=== PATIENT | male | born 1985 | race Caucasian/White ===

== ENCOUNTER 2018-12-06 16:17 | Emergency (ER) | payer MEDICAID ==
[~2018-12-06] VITALS: Ht 157.5 cm; Wt 57.0 kg
[~2018-12-06 16:17] MED LIST: BACTDS PO; CEPH-443 PO
[2018-12-06 16:21] VITALS: BP 130/69; PULSE 86; RESP 20; Ht 157.5 cm; Wt 57.0 kg
--- NOTE | 2018-12-06 16:48 | ERD ---
ER Documentation Chief Complaint Chief Complaint CRUSHED HIS RIGHT FINGER HPI 33-year-old male, right-handed, presents to the emergency department, complaining of crush injury of his right hand that occurred while the patient was working on his car and a heavy object fell onto his hand approximately 45 minutes prior to arrival. ROS All systems reviewed and are negative except as per history of present illness. Medications Home Meds Active Scripts Hydrocodone/Acetaminophen ([place] 5-325 Tablet) 1 Each Tablet, 1 TAB PO QHS PRN for PAIN, #7 TAB Prov:RALPH COATES MD 12/06/18 Ibuprofen* (Motrin*) 600 Mg Tab, 600 MG PO Q8, #30 TAB Prov:RALPH COATES MD 12/06/18 Sulfamethoxazole/Trimethoprim* (Bactrim Ds* Tablet) 1 Each Tablet, 1 TAB PO BID, #14 TAB Prov:RALPH COATES MD 12/06/18 Cephalexin* (Keflex*) 500 Mg Capsule, 500 MG PO BID for 7 Days, CAP Prov:RALPH COATES MD 12/06/18 Cephalexin* (Keflex*) 500 Mg Capsule, 500 MG PO QID for 7 Days, CAP Prov:LYNDA BANEGAS PA-C 09/27/15 Sulfamethoxazole-Trimethoprim* (Bactrim* DS) 800-160 Mg Tab, 1 TAB PO BID for 7 Days, TAB Prov:LYNDA BANEGAS PA-C 09/27/15 Allergies Allergies: Coded Allergies: No Known Allergy (Unverified , 12/06/18) PMhx/Soc Medical and Surgical Hx: pt denies Medical Hx Hx Alcohol Use: No Hx Substance Use: No Hx Tobacco Use: No FmHx Family History: No diabetes, No coronary disease Physical Exam Vitals Vital Signs Date Temp Pulse Resp B/P (MAP) Pulse Ox O2 O2 Flow FiO2 Time Delivery Rate 12/06/18 98.0 86 20 130/69 100 16:21 (89) Physical Exam Const: No acute distress Head: Atraumatic Eyes: Normal Conjunctiva ENT: Normal External Ears, Nose and Mouth. Neck: Full range of motion. No meningismus. Resp: Clear to auscultation bilaterally Cardio: Regular rate and rhythm, no murmurs Abd: Soft, non tender, non distended. Normal bowel sounds Skin: No petechiae or rashes Back: No midline or flank tenderness Ext: Right hand with crushing injuries with subcutaneous fat exposure of the distal phalanx of the second, third, fourth and fifth digit. Extensive edema, delayed perfusion, numbness and tingling to palpation but full range of motion of the distal phalanx. Neur: Awake and alert Psych: Normal Mood and Affect Results 24 hrs Current Medications Medications Dose Sig/Jessica Start Time Status Last (Trade) Ordered Route PRN Stop Time Admin Dose Reason Admin Bupivacaine 30 ml ONCE ONCE 12/06/18 DC HCl INJ 17:00 (Marcaine 12/06/18 17:01 0.25% (Mpf) 30 ml) Lidocaine 20 ml ONCE ONCE 12/06/18 DC (Xylocaine SC 17:00 1% (Mdv) 20 12/06/18 17:01 ml) Diphtheria/ 0.5 ml ONCE ONCE 12/06/18 DC 12/06/18 Tetanus/Acell IM* 17:00 17:07 Pertussis 12/06/18 17:01 (Adacel) Cefazolin 1 gm ONCE ONCE 12/06/18 DC 12/06/18 Sodium IM 19:00 18:51 (Ancef) 12/06/18 19:01 Lidocaine 5 ml ONCE ONCE 12/06/18 DC (Xylocaine INFIL 19:00 1% (Mpf)) 12/06/18 19:01 DIAGNOSTIC IMAGING REPORT Patient: INÉS FLORENTINO : 1985 Age: 33 Sex: M [id number] DOS: 12/06/18 1646 Ordering MD: RALPH COATES MD Location: E Room/Bed: PROCEDURE: XR Hand. CLINICAL INDICATION: finger crush injury TECHNIQUE: AP, oblique, and lateral views of the right hand were obtained. COMPARISON: No prior studies are available for comparison. FINDINGS: There are comminuted fractures of the third, fourth, and fifth digit dusty. There is a small bony fragment arising from the second digit tuft as well. There is second the fifth digit distal soft tissue swelling. The joint spaces are preserved. Bone mineralization is normal. IMPRESSION: 1. Comminuted fractures of the third , fourth, and fifth digit dusty. Small fracture fragment arising from the second digit tuft as well. RPTAT: DD .Blair Carrasco MD, Date Time Electronically viewed and signed by .Blair Carrasco MD, MD on 12/06/2018 17:13 Procedures/MDM Vital signs stable, the patient was evaluated for foreign body, open fracture, nerve/vascular/tendon injury. Pertinent data: Comminuted fractures of the third , fourth, and fifth digit dusty. Small fracture fragment arising from the second digit tuft as well. Procedure: Laceration repair The procedure was explained and consent obtained. Anesthesia: Digital block of 2nd, 3rd, 4thand 5th 1% lidocaine with bupivacaine. Tendon/Joint/Nerves: crushed fractures without bone exposure Foreign body: None detected after copious irrigation and exploration Technique: Simple Interrupted Sutures Complexity: No subcutaneous sutures/mucosal repair/edge excision Post Closure Length: 5 cm Splint evaluation: Type: Short arm posterior Location: Right forearm Position: good alignment in anatomical position Neurovascular intact The patient was told that elevating the injured part will help reduce pain and swelling. Ice packs can decrease pain and promote healing when applied in the first two days after an injury. The pack should be dry on the outside. Apply it for half an hour three to four times a day. The patient tolerated the procedure well without complications. clinical impression and possible complications like infection and a scar where discussed with the patient who agreed with management. The patient is stable to be treated outpatient and will be discharged home with a Rx for Bactrim, Keflex and pain medications, some side effects of prescribed medications (headache, rash, nausea, vomiting, diarrhea, interactions with other medications) were reviewed. The patient was instructed to follow up here in 48h for wound check. If symptoms persist, worsen or new symptoms develop, then patient should return to the ED immediately. Instructions explained and given directly by me to the patient with acknowledgment and demonstrated understanding. Disclaimer: Inadvertent spelling and grammatical errors are likely due to EHR/dictation software use and do not reflect on the overall quality of patient care. Also, please note that the electronic time recorded on this note does not necessarily reflect the actual time of the patient encounter. Departure Diagnosis: Primary Impression: Fracture of distal phalanx of finger of right hand Additional Impression: Crushing injury of finger, right Condition: Stable Additional Instructions: Muchas giancarlo por [facility] para perdomo servicio. Esperamos que en perdomo visita a la kwabena de emergencia perdomo problema medico haya sido solucionado y que se sienta mucho mejor. Para estar seguros que perdomo mejoria sigue en proceso, le pedimos el favor de hacer melissa chirag de seguimiento medico con perdomo doctor primario en los proximos 2-4 han. Lleve con usted estos documentos y las medicinas recetadas. Si shamika sintomas empeoran, NO SE ESPERE, por favor regrese a kwabena de emergencia INMEDIATAMENTE. En jovanni que usted no tenga un mdico de atencin primaria: Llame al mdico o clnica comunitaria de referencia que aparece abajo nickolas las horas de consultorio para hacer melissa chirag para que le vean. CLINICAS: [facility] [phone] [facility] [phone] [address] [facility] [phone] [facility] [phone] [facility] [phone] [address] [facility]. [phone] RALPH BORGES MD Dec 06, 2018 16:48
[2018-12-06] MEDS ORDERED: DIPHTH/TET/ACEL PERTUSS (ADULT) 0.5 ML VIAL IM* ONE (17:00)
[2018-12-06] MEDS ORDERED: BUPIVACAINE 0.25% (MPF) 30 ML INJ INJ ONE (17:00)
[2018-12-06] MEDS ORDERED: LIDOCAINE 1% (MDV) 20 ML INJ SC ONE (17:00)
[2018-12-06] MEDS ORDERED: SULF1TAB31 PO (18:39)
[2018-12-06] MEDS ORDERED: HYDR-4011 PO (18:39)
[2018-12-06] MEDS ORDERED: CEPH-443 PO (18:39)
[2018-12-06] MEDS ORDERED: IBUP-1542 PO (18:39)
[2018-12-06] MEDS ORDERED: LIDOCAINE 1% (MPF) 5 ML VIAL INFIL ONE (19:00)
[2018-12-06] MEDS ORDERED: CEFAZOLIN 1 GM INJ IM ONE (19:00)
== END 2018-12-06 19:20 | disposition home or self-care (01) ==
LOC: FTE 16:17
DX: S62.632A Displaced fracture of distal phalanx of right middle finger, initial encounter for closed fracture (principal); S62.634A Displaced fracture of distal phalanx of right ring finger, initial encounter for closed fracture; S62.636A Displaced fracture of distal phalanx of right little finger, initial encounter for closed fracture; W20.8XXA Other cause of strike by thrown, projected or falling object, initial encounter; Y92.89 Other specified places as the place of occurrence of the external cause; Z23 Encounter for immunization
CPT/HCPCS: 12002; 73130; 90471; 90715; 96372; J0690; Z7502; Z7610

== ENCOUNTER 2018-12-08 10:09 | Emergency (ER) | payer MEDICAID ==
[~2018-12-08] VITALS: Ht 162.6 cm; Wt 57.2 kg
[~2018-12-08 10:09] MED LIST changes: +HYDR-4011 PO; +IBUP-1542 PO; +SULF1TAB31 PO
[2018-12-08 10:14] VITALS: BP 113/65; PULSE 75; RESP 18; Ht 162.6 cm; Wt 57.2 kg
--- NOTE | 2018-12-08 12:03 | ERD ---
ER Documentation Chief Complaint Chief Complaint for recheck on rt hand injury HPI 33-year-old male, returns to the emergency department for 48 hours wound check. The patient sustained multiple right finger injuries with distal phalangeal fractures 2 days ago. The patient refers feeling better. Good compliance with antibiotics, no side effects. The patient denies fevers, no chills, he reports decreased sensation on the tip of the fingers but able to move it. ROS All systems reviewed and are negative except as per history of present illness. Medications Home Meds Active Scripts Hydrocodone/Acetaminophen ([place] 5-325 Tablet) 1 Each Tablet, 1 TAB PO QHS PRN for PAIN, #7 TAB Prov:RALPH COATES MD 12/06/18 Ibuprofen* (Motrin*) 600 Mg Tab, 600 MG PO Q8, #30 TAB Prov:RALPH COATES MD 12/06/18 Sulfamethoxazole/Trimethoprim* (Bactrim Ds* Tablet) 1 Each Tablet, 1 TAB PO BID, #14 TAB Prov:RALPH COATES MD 12/06/18 Cephalexin* (Keflex*) 500 Mg Capsule, 500 MG PO BID for 7 Days, CAP Prov:RALPH COATES MD 12/06/18 Cephalexin* (Keflex*) 500 Mg Capsule, 500 MG PO QID for 7 Days, CAP Prov:LYNDA BANEGAS PA-C 09/27/15 Sulfamethoxazole-Trimethoprim* (Bactrim* DS) 800-160 Mg Tab, 1 TAB PO BID for 7 Days, TAB Prov:LYNDA BANEGAS PA-C 09/27/15 Allergies Allergies: Coded Allergies: No Known Allergy (Unverified , 12/06/18) PMhx/Soc Medical and Surgical Hx: pt denies Medical Hx, pt denies Surgical Hx Hx Alcohol Use: No Hx Substance Use: No Hx Tobacco Use: No Smoking Status: Never smoker FmHx Family History: No diabetes, No coronary disease Physical Exam Vitals Vital Signs Date Temp Pulse Resp B/P (MAP) Pulse Ox O2 O2 Flow FiO2 Time Delivery Rate 12/08/18 98.9 75 18 113/65 98 10:14 (81) Physical Exam Const: No acute distress Head: Atraumatic Eyes: Normal Conjunctiva ENT: Normal External Ears, Nose and Mouth. Neck: Full range of motion. No meningismus. Resp: Clear to auscultation bilaterally Cardio: Regular rate and rhythm, no murmurs Abd: Soft, non tender, non distended. Normal bowel sounds Skin: No petechiae or rashes Back: No midline or flank tenderness Ext: Right hand with multiple crush injuries of the distal phalanx of the right fingers, adequate healing process, wounds clean, dry and intact. Distal neurovascular exam unremarkable. Neur: Awake and alert Psych: Normal Mood and Affect Procedures/MDM Status post laceration repair 2 days ago. Adequate pain control, no fever, no chills, good compliance with medications no side effects. The patient was evaluated for infection and neurovascular compromise. The wound was clean and irrigated with normal saline and dressing applied. Patient is stable, with adequate healing process, okay to discharge home, medication adherence reinforced. some side effects of prescribed medications (headache, rash, nausea, vomiting, diarrhea, drowsiness, habituation, bleeding, hypertension, interactions with other medications) were reviewed. The patient was instructed to return in 48h. If symptoms persist, worsen or new symptoms develop, then patient should return to the ED immediately. Instructions explained and given directly by me to the patient with acknowledgment and demonstrated understanding. Disclaimer: Inadvertent spelling and grammatical errors are likely due to EHR /dictation software use and do not reflect on the overall quality of patient care. Also, please note that the electronic time recorded on this note does not necessarily reflect the actual time of the patient encounter. Departure Diagnosis: Primary Impression: Encounter for wound re-check Condition: Stable Patient Instructions: Wound Check, Lac F/U (No Infection) Additional Instructions: Muchas giancarlo por [facility] para perdomo servicio. Esperamos que en perdomo visita a la kwabena de emergencia perdomo problema medico haya sido solucionado y que se sienta mucho mejor. Para estar seguros que perdomo mejoria sigue en proceso, le pedimos el favor de hacer melissa chirag de seguimiento medico con perdomo doctor primario en los proximos 2-4 han. Lleve con usted estos documentos y las medicinas recetadas. Si shamika sintomas empeoran, NO SE ESPERE, por favor regrese a kwabena de emergencia INMEDIATAMENTE. En jovanni que usted no tenga un mdico de atencin primaria: Llame al mdico o clnica comunitaria de referencia que aparece abajo nickolas las horas de consultorio para hacer melissa chirag para que le vean. CLINICAS: [facility] [phone] [facility] [phone] [address] [facility] [phone] [address] [place] [phone] [place] [phone] [address] [facility]. [phone] RALPH BORGES MD Dec 08, 2018 12:03
== END 2018-12-08 12:10 | disposition home or self-care (01) ==
LOC: FTE 10:09
DX: Z48.01 Encounter for change or removal of surgical wound dressing (principal)
CPT/HCPCS: 99281

== ENCOUNTER 2018-12-10 10:16 | Emergency (ER) | payer MEDICAID ==
[~2018-12-10] VITALS: Ht 157.5 cm; Wt 57.3 kg
[2018-12-10 10:25] VITALS: BP 122/59; PULSE 75; RESP 20; Ht 157.5 cm; Wt 57.3 kg
--- NOTE | 2018-12-10 12:48 | ERD ---
ER Documentation Chief Complaint Chief Complaint Patient here for a wound check HPI 33-year-old male with a history of fractures of fingertips on the right hand associated with laceration to the crush injury with a car selene 4 days ago. Here for a wound check. His pain is controlled he has no fevers, new symptoms. ROS All systems reviewed and are negative except as per history of present illness. Medications Home Meds Active Scripts Hydrocodone/Acetaminophen ([place] 5-325 Tablet) 1 Each Tablet, 1 TAB PO QHS PRN f or PAIN, #7 TAB Prov:RALPH COATES MD 12/06/18 Ibuprofen* (Motrin*) 600 Mg Tab, 600 MG PO Q8, #30 TAB Prov:RALPH COATES MD 12/06/18 Sulfamethoxazole/Trimethoprim* (Bactrim Ds* Tablet) 1 Each Tablet, 1 TAB PO BID, #14 TAB Prov:RALPH COATES MD 12/06/18 Cephalexin* (Keflex*) 500 Mg Capsule, 500 MG PO BID for 7 Days, CAP Prov:RALPH COATES MD 12/06/18 Cephalexin* (Keflex*) 500 Mg Capsule, 500 MG PO QID for 7 Days, CAP Prov:LYNDA BANEGAS PA-C 09/27/15 Sulfamethoxazole-Trimethoprim* (Bactrim* DS) 800-160 Mg Tab, 1 TAB PO BID for 7 Days, TAB Prov:LYNDA BANEGAS PA-C 09/27/15 Allergies Allergies: Coded Allergies: No Known Allergy (Unverified , 12/06/18) PMhx/Soc Medical and Surgical Hx: pt denies Medical Hx, pt denies Surgical Hx Hx Alcohol Use: No Hx Substance Use: No Hx Tobacco Use: No FmHx Family History: No diabetes, No coronary disease, No other Physical Exam Vitals Vital Signs Date Temp Pulse Resp B/P (MAP) Pulse Ox O2 O2 Flow FiO2 Time Delivery Rate 12/10/18 75 20 122/59 97 10:25 (80) Physical Exam Const: No acute distress Head: Atraumatic Eyes: Normal Conjunctiva ENT: Normal External Ears, Nose and Mouth. Neck: Full range of motion. No meningismus. Resp: Clear to auscultation bilaterally Cardio: Regular rate and rhythm, no murmurs Abd: Soft, non tender, non distended. Normal bowel sounds Skin: No petechiae or rashes Back: No midline or flank tenderness Ext: No cyanosis, or edema. Healing lacerations and abrasions and avulsions on the tips of the right second third and fourth digits. No erythema, discharge. No appreciable restricted range of motion weakness. There is some maceration of the injured tissue and laceration. Neur: Awake and alert Psych: Normal Mood and Affect Procedures/MDM Patient presents with what appears to be a satisfactorily healing crush injury of the right hand with sutures intact without signs of infection, ischemia,, gangrene. Patient's wounds were redressed although less so given the maceration. He is placed in a right hand splint as well. Patient will be discharged home with recommendations for approximately 4-5-day suture removal and he will be given information on hand surgery follow-up for restricted range of motion, weakness, recheck. He is advised to recheck sooner for worsening redness, fevers, new worsening symptoms. Departure Diagnosis: Primary Impression: Encounter for wound re-check Additional Impressions: Fracture of distal phalanx of finger of right hand Laceration Condition: Stable Patient Instructions: Fracture, Finger (Open), Laceration, Hand Referrals: [facility] Additional Instructions: maria r 5 han para allyssaa los lexies / scottie. ANTONIO MACDONALD MD Dec 10, 2018 12:48
== END 2018-12-10 13:15 | disposition home or self-care (01) ==
LOC: FTE 10:16
DX: S62.632A Displaced fracture of distal phalanx of right middle finger, initial encounter for closed fracture (principal); S61.411A Laceration without foreign body of right hand, initial encounter; W23.0XXA Caught, crushed, jammed, or pinched between moving objects, initial encounter; Y92.9 Unspecified place or not applicable
CPT/HCPCS: 29125; Z7502

== ENCOUNTER 2018-12-14 10:17 | Emergency (ER) | payer MEDICAID ==
[~2018-12-14] VITALS: Ht 162.6 cm; Wt 56.1 kg
[2018-12-14 10:25] VITALS: BP 109/67; PULSE 76; RESP 18; Ht 162.6 cm; Wt 56.1 kg
--- NOTE | 2018-12-14 13:49 | ERD ---
ER Documentation Chief Complaint Chief Complaint pt is here for right hand suture removal HPI Patient is a 33-year-old male who presents for suture removal. The patient had sutures placed to his third and fourth fingers of the right hand on December 06. He has had multiple visits since for wound checks. He denies fevers or pus from the wound. He does have pain in the area. ROS All systems reviewed and are negative except as per history of present illness. Medications Home Meds Active Scripts Hydrocodone/Acetaminophen ([place] 5-325 Tablet) 1 Each Tablet, 1 TAB PO QHS PRN for PAIN, #7 TAB Prov:RALPH COATES MD 12/06/18 Ibuprofen* (Motrin*) 600 Mg Tab, 600 MG PO Q8, #30 TAB Prov:RALPH COATES MD 12/06/18 Sulfamethoxazole/Trimethoprim* (Bactrim Ds* Tablet) 1 Each Tablet, 1 TAB PO BID, #14 TAB Prov:RALPH COATES MD 12/06/18 Cephalexin* (Keflex*) 500 Mg Capsule, 500 MG PO BID for 7 Days, CAP Prov:RALPH COATES MD 12/06/18 Cephalexin* (Keflex*) 500 Mg Capsule, 500 MG PO QID for 7 Days, CAP Prov:LYNDA BANEGAS PA-C 09/27/15 Sulfamethoxazole-Trimethoprim* (Bactrim* DS) 800-160 Mg Tab, 1 TAB PO BID for 7 Days, TAB Prov:LYNDA BANEGAS PA-C 09/27/15 Allergies Allergies: Coded Allergies: No Known Allergy (Unverified , 12/06/18) PMhx/Soc Medical and Surgical Hx: pt denies Medical Hx, pt denies Surgical Hx Hx Alcohol Use: No Hx Substance Use: No Hx Tobacco Use: No Smoking Status: Never smoker FmHx Family History: No diabetes Physical Exam Vitals Vital Signs Date Temp Pulse Resp B/P (MAP) Pulse Ox O2 O2 Flow FiO2 Time Delivery Rate 12/14/18 98.0 76 18 109/67 99 10:25 (81) Physical Exam Const: No acute distress Head: Atraumatic Eyes: Normal Conjunctiva ENT: Normal External Ears, Nose and Mouth. Neck: Full range of motion. No meningismus. Resp: Clear to auscultation bilaterally Cardio: Regular rate and rhythm, no murmurs Abd: Soft, non tender, non distended. Normal bowel sounds Skin: There is crusting to the right third, fourth, and fifth fingers, there is duskiness of the skin and unfortunately the skin may not be viable, there is no obvious infection Back: No midline or flank tenderness Ext: No cyanosis, or edema Neur: Awake and alert Psych: Normal Mood and Affect Procedures/MDM Suture Removal by me: Sutures removed with tweezers and scissors without incident. Wound shows no evidence of infection, foreign body, neurologic injury, vascular injury, open joint or tendon laceration. The patient does have skin which may be nonviable unfortunately and will need to declare itself. I will give him information for the local clinics as he is does not currently have a primary doctor and needs to obtain one. I will also give him information for Dr. Logan from hand surgery for close follow-up. Patient to follow up PRN. Departure Diagnosis: Primary Impression: Encounter for removal of sutures Condition: Fair Patient Instructions: Suture Removal, No Complication Referrals: [facility] () Usted se monaco hecho un examen mdico de control que le indica que no est en melissa condicin que requiera tratamiento urgente en el Departamento de Emergencia. Un estudio ms profundo y el tratamiento de hutchinson condicin pueden esperar sin ningn riesgo hasta que usted sea atendida/o en el consultorio de hutchinson mdico o melissa clnica. Es responsabilidad suya arreglar melissa chirag para el seguimiento del jovanni. MANEJO DE CONDICIONES NO URGENTES EN EL FUTURO 1) Si usted tiene un mdico de atencin primaria: Usted debera llamar a hutchinson mdico de atencin primaria antes de venir al departamento de emergencia. Despus de las horas de consultorio, hutchinson doctor o hutchinson asociado/a est disponible por telfono. El mdico o enfermero de nacho en el servicio telefnico puede asesorarle por remedios medio para atender el problema, o jovanni contrario se puede programar melissa chirag. 2) Si usted no tiene un mdico de atencin primaria: Llame al mdico o clnica de referencia que aparece abajo nickolas las horas de consultorio para hacer melissa chirag para que le vean. CLINICAS: [facility] [phone] [facility] [phone] [facility] [phone] [address] [facility]. [place] [phone] [facility]. [place] [address] [phone] [facility] [phone] [address] Additional Instructions: Specialist:Usted tiene melissa condicin mdica que requiere que luis carlos a un especialista dentro de los prximos 1-2 dueñas.POR FAVOR,CON HUTCHINSON SEGUIMIENTO DE PRIMARIA PHSICIAN refferal. SI USTED NO TIENE UN MDICO GENERAL Y / O USTED NO PUEDE PAGAR terrance a un mdico,los siguientes pineda RECURSOS sido suministrado a usted. ES HUTCHINSON RESPONSABILIDAD PARA SER VISTOS POR EL ESPECIALISTA: CHERYL SANDERS MD Dec 14, 2018 13:49
== END 2018-12-14 12:25 | disposition home or self-care (01) ==
LOC: E/R 10:17
DX: Z48.02 Encounter for removal of sutures (principal)
CPT/HCPCS: 99281